=== PATIENT | male | born 1995 | race Caucasian/White ===

== ENCOUNTER 2020-10-10 13:19 | Emergency (ER) | payer BC, OTHER ==
[~2020-10-10 13:19] MED LIST: ADMELOG100 UNIT/1 SQ; BASAGLAR K100 UNIT/1 SQ; CLEOCIN HCL300 MG PO; COLCHICINE0.6 MG PO; DEX4 GLUCOSE BIT1 GM PO; INDOMETHACIN50 MG PO; LEVAQUIN750 MG PO; ONDANSETRON ODT4 MG PO; PANTOPRAZOLE SO40 MG PO; PROTONIX40 MG PO; PROVENTIL HFA6.7 GM INH
[2020-10-10 14:07] LABS: HEMOGLOBIN 15.8 gm/dl (14.0-17.5); RED BLOOD COUNT 5.35 M/UL (4.20-5.50); WHITE BLOOD COUNT 6.7 K/UL (4.5-11.0)
[2020-10-10 14:36] LABS: BUN/CREATININE RATIO 18 (0-10)
[2020-10-10] MEDS ORDERED: ZOFRAN4 MG PO (14:59)
== END 2020-10-10 16:05 | disposition home or self-care (01) ==
LOC: ER1 13:19
PROVIDERS: Physician Assistant
DX: R11.2 Nausea with vomiting, unspecified (principal); E87.6 Hypokalemia; E10.9 Type 1 diabetes mellitus without complications; Z88.1 Allergy status to other antibiotic agents; Z88.0 Allergy status to penicillin
CPT/HCPCS: 80053; 81001; 85025; 96374; 99284; J2405; J7030

== ENCOUNTER 2021-02-05 10:52 | Emergency (ER) | payer BC, OTHER ==
[~2021-02-05 10:52] MED LIST changes: +ZOFRAN4 MG PO
[2021-02-05] MEDS ORDERED: BACTRIM 400-801 EACH PO (14:13)
== END 2021-02-05 14:18 | disposition home or self-care (01) ==
LOC: ER1 10:52
DX: L03.116 Cellulitis of left lower limb (principal); E10.9 Type 1 diabetes mellitus without complications
CPT/HCPCS: 93971; 99283

== ENCOUNTER 2021-02-19 10:19 | Inpatient (IN) | payer BC, OTHER ==
[~2021-02-19] VITALS: Ht 182.9 cm; Wt 63.0 kg
[~2021-02-19 10:19] MED LIST changes: +BACTRIM 400-801 EACH PO
[2021-02-19 10:59] LABS: RED BLOOD COUNT 4.82 M/UL (4.20-5.50)
[2021-02-19 11:27] LABS: WHITE BLOOD COUNT 32.2 K/UL (4.5-11.0)
[2021-02-19 12:15] LABS: BUN/CREATININE RATIO 28 (0-10)
[2021-02-19 14:18] LABS: BUN/CREATININE RATIO 30 (0-10)
[2021-02-19] MEDS ORDERED: CITALOPRAM HBR20 MG PO (15:32)
[2021-02-19] MEDS ORDERED: GABAPENTIN300 MG PO (15:32)
[2021-02-19] MEDS ORDERED: KENALOG CREAM 080 GM EXT (15:33)
[2021-02-19] MEDS ORDERED: ONDANSETRON HCL4 MG PO (15:34)
[2021-02-19 17:10] LABS: BUN/CREATININE RATIO 28 (0-10)
[2021-02-19 21:17] LABS: BUN/CREATININE RATIO 29 (0-10)
[2021-02-19 22:34] LABS: BUN/CREATININE RATIO 26 (0-10)
[2021-02-20 01:12] LABS: BUN/CREATININE RATIO 26 (0-10)
[2021-02-20 05:20] LABS: HEMOGLOBIN 12.9 gm/dl (14.0-17.5); RED BLOOD COUNT 3.99 M/UL (4.20-5.50); WHITE BLOOD COUNT 15.5 K/UL (4.5-11.0)
[2021-02-20 05:22] LABS: BUN/CREATININE RATIO 21 (0-10)
[2021-02-20 08:27] LABS: BUN/CREATININE RATIO 18 (0-10)
[2021-02-20 16:46] LABS: BUN/CREATININE RATIO 10 (0-10)
[2021-02-21 05:31] LABS: HEMOGLOBIN 12.6 gm/dl (14.0-17.5); RED BLOOD COUNT 3.91 M/UL (4.20-5.50)
[2021-02-21 05:32] LABS: WHITE BLOOD COUNT 7.8 K/UL (4.5-11.0)
[2021-02-21 06:30] LABS: BUN/CREATININE RATIO 14 (0-10)
[2021-02-21] MEDS ORDERED: LEVOFLOXACIN750 MG PO (11:53)
== END 2021-02-21 14:29 | disposition home or self-care (01) | DRG 871 ==
LOC: ER1 10:19 → CCU 14:02 → CDU 14:02 → CCU 15:24 → M/S 02-20 17:21
PROVIDERS: Internal Medicine; Internal Medicine Nephrology; Physician Assistant; Physician Assistant Medical; ADMIT Internal Medicine
DX: A41.9 Sepsis, unspecified organism (principal); E10.10 Type 1 diabetes mellitus with ketoacidosis without coma; G93.41 Metabolic encephalopathy; J18.9 Pneumonia, unspecified organism; L03.116 Cellulitis of left lower limb; L03.115 Cellulitis of right lower limb; Z20.822 Contact with and (suspected) exposure to COVID-19; J45.909 Unspecified asthma, uncomplicated; E83.39 Other disorders of phosphorus metabolism; E83.42 Hypomagnesemia; K59.00 Constipation, unspecified; K20.90 Esophagitis, unspecified without bleeding; E87.6 Hypokalemia; E87.5 Hyperkalemia; F32.9 Major depressive disorder, single episode, unspecified; E87.8 Other disorders of electrolyte and fluid balance, not elsewhere classified; Z79.4 Long term (current) use of insulin; Z88.1 Allergy status to other antibiotic agents
CPT/HCPCS: 36415; 51702; 71045; 73700; 80048; 80053; 80202; 81001; 82009; 82043; 82570; 82803; 82962; 83036; 83605; 83735; 84100; 84132; 84156; 85025; 86140; 87040; 93970; 94760; 96374; 96375; 96376; 99285; C9113; J1650; J2060; J2405; J2543; J3370; J3411; J7030; J7070; Q9967; U0002

== ENCOUNTER → 2021-02-22 | Outpatient (CLI) | payer BC, OTHER ==
[~2021-02-22] VITALS: Ht 182.9 cm; Wt 63.0 kg
[~2021-02-22] MED LIST changes: +CITALOPRAM HBR20 MG PO; +GABAPENTIN300 MG PO; +KENALOG CREAM 080 GM EXT; +LEVOFLOXACIN750 MG PO; +ONDANSETRON HCL4 MG PO
== END ==
LOC: OPSV 10:00
DX: L03.115 Cellulitis of right lower limb (principal); Z88.0 Allergy status to penicillin; Z88.1 Allergy status to other antibiotic agents
CPT/HCPCS: 96365; J0875; J7060

== ENCOUNTER → 2021-05-26 | Outpatient (CLI) | payer BC, OTHER ==
[~2021-05-26] MED LIST changes: +K-DUR TAB 10 M10 MEQ PO; +LASIX40 MG PO
[2021-05-26 11:33] LABS: HEMOGLOBIN 14.3 gm/dl (14.0-17.5); RED BLOOD COUNT 4.46 M/UL (4.20-5.50); WHITE BLOOD COUNT 5.4 K/UL (4.5-11.0)
[2021-05-26 11:55] LABS: BUN/CREATININE RATIO 16 (0-10)
[2021-05-27 11:10] LABS: CREATININE, URINE 100.1 mg/dL (Not Estab.)
== END ==
LOC: LAB 10:33
PROVIDERS: Nurse Practitioner
DX: S81.801D Unspecified open wound, right lower leg, subsequent encounter (principal); L97.909 Non-pressure chronic ulcer of unspecified part of unspecified lower leg with unspecified severity; E10.40 Type 1 diabetes mellitus with diabetic neuropathy, unspecified; K31.84 Gastroparesis
CPT/HCPCS: 36415; 80053; 80061; 82043; 82570; 83036; 84439; 84443; 85025

== ENCOUNTER 2021-05-30 20:26 | Emergency (ER) | payer BC, OTHER ==
[~2021-05-30 20:26] MED LIST changes: -K-DUR TAB 10 M10 MEQ PO; -LASIX40 MG PO
[2021-05-30 22:07] LABS: RED BLOOD COUNT 3.93 M/UL (4.20-5.50); WHITE BLOOD COUNT 7.1 K/UL (4.5-11.0)
[2021-05-30 22:14] LABS: HEMOGLOBIN 12.3 gm/dl (14.0-17.5)
[2021-05-30 22:27] LABS: BUN/CREATININE RATIO 22 (0-10)
[2021-05-31] MEDS ORDERED: K-DUR TAB 10 M10 MEQ PO (00:33)
[2021-05-31] MEDS ORDERED: LASIX40 MG PO (00:33)
== END 2021-05-31 02:49 | disposition home or self-care (01) ==
LOC: ER1 20:26
PROVIDERS: Physician Assistant Medical
DX: R60.9 Edema, unspecified (principal); J45.909 Unspecified asthma, uncomplicated; E10.9 Type 1 diabetes mellitus without complications; Z88.0 Allergy status to penicillin; Z88.1 Allergy status to other antibiotic agents
CPT/HCPCS: 71045; 80053; 82009; 82962; 83690; 83880; 85025; 85379; 85610; 96374; 96375; 99284; J1940; Q9967

== ENCOUNTER → 2021-06-20 | Outpatient (CLI) | payer BC, OTHER ==
[~2021-06-20] MED LIST changes: +K-DUR TAB 10 M10 MEQ PO; +LASIX40 MG PO
== END ==
LOC: EXRD 14:43
DX: R60.0 Localized edema (principal); E10.622 Type 1 diabetes mellitus with other skin ulcer
CPT/HCPCS: 93922; 93925; 93970

== ENCOUNTER → 2021-06-29 | Outpatient (CLI) | payer BC, OTHER | LOC: WCC 09:30 | DX: Z09 Encounter for follow-up examination after completed treatment for conditions other than malignant neoplasm (principal); Z87.2 Personal history of diseases of the skin and subcutaneous tissue; E10.43 Type 1 diabetes mellitus with diabetic autonomic (poly)neuropathy; K31.84 Gastroparesis; J45.909 Unspecified asthma, uncomplicated; F41.9 Anxiety disorder, unspecified; R60.0 Localized edema; Z79.899 Other long term (current) drug therapy; Z79.4 Long term (current) use of insulin; Z88.1 Allergy status to other antibiotic agents | CPT/HCPCS: G0463 ==

== ENCOUNTER → 2021-07-06 | Outpatient (CLI) | payer BC, OTHER | LOC: RAD 11:27 | DX: M25.571 Pain in right ankle and joints of right foot (principal); M79.671 Pain in right foot | CPT/HCPCS: 73600; 73620 ==

== ENCOUNTER → 2021-08-07 | Outpatient (CLI) | payer BC, OTHER ==
[2021-08-07 14:42] LABS: HEMOGLOBIN 14.8 gm/dl (14.0-17.5); RED BLOOD COUNT 4.85 M/UL (4.20-5.50); WHITE BLOOD COUNT 5.9 K/UL (4.5-11.0)
[2021-08-07 15:03] LABS: BUN/CREATININE RATIO 15 (0-10)
== END ==
LOC: LAB 14:01
PROVIDERS: Nurse Practitioner
DX: E10.43 Type 1 diabetes mellitus with diabetic autonomic (poly)neuropathy (principal); K31.84 Gastroparesis; E10.40 Type 1 diabetes mellitus with diabetic neuropathy, unspecified
CPT/HCPCS: 36415; 80053; 82043; 83036; 84439; 84443; 85027

== ENCOUNTER → 2021-11-03 | Outpatient (CLI) | payer BC, OTHER ==
[2021-11-03 10:40] LABS: BUN/CREATININE RATIO 11 (0-10)
== END ==
LOC: LAB 10:01
PROVIDERS: Nurse Practitioner Family
DX: E10.65 Type 1 diabetes mellitus with hyperglycemia (principal)
CPT/HCPCS: 36415; 80053

== ENCOUNTER → 2021-12-13 | Outpatient (CLI) | payer BC, OTHER | LOC: LAB 10:33 | DX: E10.65 Type 1 diabetes mellitus with hyperglycemia (principal) | CPT/HCPCS: 36415; 82947; 84681 ==